=== PATIENT | female | born 1990 | race Caucasian/White ===

== ENCOUNTER 2025-08-04 12:20 | Emergency (ER) | payer MEDICAID ==
[~2025-08-04] VITALS: Ht 170.2 cm; Wt 48.0 kg
[2025-08-04 12:23] VITALS: TEMP 36.9; O2SAT 98
[2025-08-04 12:40] VITALS: BP 114/68; PULSE 114; RESP 16; O2SAT 98
[2025-08-04] MEDS: FAMOTIDINE 20MG/2ML VIAL IV ONE (13:01)
[2025-08-04] MEDS: SODIUM CHLORIDE 0.9% 1,000 ML IV ONE (13:02)
[2025-08-04] MEDS: METHYLPREDNISOLONE SOD SUCC 125MG/2ML (ACT-O-VIAL) IV ONE (13:02)
[2025-08-04 14:42] LABS: CLARITY URINE CLEAR (CLEAR); COLOR URINE DARK YELLOW (YELLOW); GLUCOSE URINE NEGATIVE (NEGATIVE); KETONES URINE 1+ (NEGATIVE); LEUKOCYTE ESTERASE URINE TRACE (NEGATIVE); NITRITE URINE NEGATIVE (NEGATIVE); OCCULT BLOOD URINE NEGATIVE (NEGATIVE); PH URINE 6.5 (4.5-8.0); PROTEIN URINE TRACE (NEGATIVE); SPECIFIC GRAVITY URINE 1.020 (1.005-1.030); UROBILINOGEN URINE 1.0 E.U./dL (0.2-1.0)
[2025-08-04 14:57] LABS: BACTERIA URINE TRACE; SQUAMOUS EPITHELIAL CELL URINE 2+ /lpf (RARE/1+); YEAST URINE NONE SEEN
== END 2025-08-04 14:44 | disposition left against medical advice (07) ==
LOC: ER 13:29
DX: T63.441A Toxic effect of venom of bees, accidental (unintentional), initial encounter (principal); Z91.030 Bee allergy status; Z91.040 Latex allergy status; Y92.89 Other specified places as the place of occurrence of the external cause
CPT/HCPCS: 99284; 96374; 96361; 96375; 81003; J2919; J1308; J7030